=== PATIENT | male | born 1985 | race African-American/Black ===

== ENCOUNTER 2021-02-07 18:03 | Outpatient (CLI) | payer BC, OTHER | END 2021-02-07 18:04 | disposition critical access hospital (66) | LOC: EMS 18:03 | DX: R10.9 Unspecified abdominal pain (principal); R31.0 Gross hematuria | CPT/HCPCS: A0425; A0429 ==

== ENCOUNTER 2021-02-07 18:25 | Emergency (ER) | payer BC, OTHER ==
[2021-02-07 19:02] LABS: PH,URINE 6.5 PH (5.0-7.5)
[2021-02-07 19:04] LABS: BASOPHILS % (AUTO) 0.9 %; EOSINOPHILS # (AUTO) 0.1 10^3/uL (0.0-0.7); EOSINOPHILS % (AUTO) 1.8 %; HGB - HEMOGLOBIN 13.4 g/dL (14.0-18.0); LYMPHOCYTES # (AUTO) 1.2 10^3/uL (1.5-3.5); LYMPHOCYTES % (AUTO) 26.1 %; MEAN CORPUSCULAR HGB CONC 33.5 g/dL (32.0-36.0); MEAN CORPUSCULAR VOLUME 95.5 fL (80.0-94.0); MEAN PLATELET VOLUME 9.7 fL (7.4-11.4); MONOCYTES # (AUTO) 0.9 10^3/uL (0.0-1.0); MONOCYTES % (AUTO) 19.6 %; NEUTROPHILS # (AUTO) 2.3 10^3/uL (1.5-6.6); NEUTROPHILS % (AUTO) 50.5 %; PLT - PLATELET COUNT 187 10^3/uL (130-450); RED BLOOD COUNT 4.19 10^6/uL (4.70-6.10); RED CELL DISTRIBUTION WIDTH 14.1 % (12.0-15.0); WHITE BLOOD COUNT 4.5 x10^3/uL (4.8-10.8)
[2021-02-07 19:04] LABS: CLARITY,URINE HAZY (CLEAR)
[2021-02-07 19:16] LABS: ALBUMIN 4.2 g/dL (3.2-5.5); ALBUMIN/GLOBULIN RATIO 0.8 (1.0-2.2); BILIRUBIN,TOTAL 0.8 mg/dL (0.2-1.0); CALCIUM 9.1 mg/dL (8.5-10.3); CREATININE 0.9 mg/dL (0.6-1.2); TOTAL PROTEIN 9.3 g/dL (6.7-8.2)
[2021-02-07 19:17] LABS: BACTERIA,URINE Moderate /HPF (None Seen); SQUAMOUS EPITHELIAL CELL,UR NONE SEEN (<= Few); WBC,URINE >25 /HPF (0-3)
[2021-02-07 19:19] LABS: LEUKOCYTE ESTERASE, URINE LARGE (NEGATIVE); OCCULT BLOOD,URINE MODERATE (NEGATIVE)
[2021-02-07] MEDS ORDERED: cefTRIAXone 1 GM VIAL IVP STA (19:35)
[2021-02-07] MEDS ORDERED: SODIUM CHLORIDE 0.9% 1,000 ML IV STA (19:36)
[2021-02-07] MEDS ORDERED: HYDROmorphone 1 MG/ML CARPUJECT IVP STA (19:36)
--- NOTE | 2021-02-07 19:36 | ED Physician Documentation ---
History of Present Illness - Stated complaint Stated Complaint: FLANK PAIN - Chief complaint Chief Complaint: Abd Pain - History obtained from History obtained from: Patient - History of Present Illness Timing: How many weeks ago (2) Pain level max: 9 Pain level now: 9 - Additonal information Additional information: Patient is a 35-year-old male who is here from [place] for work. He states he has a history of HIV but has not been taking his medications for the past month. He states that about 2 weeks ago started with dysuria and urinary symptoms. History of recurrent bladder infections in the past. He states that today he developed left flank pain. Worse with movement, better with rest. No vomiting. No fevers. No chills. No sexual partners here. No STD exposure Review of Systems Ten Systems: 10 systems reviewed and negative Constitutional: denies: Fever, Chills Nose: denies: Rhinorrhea / runny nose, Congestion Throat: denies: Sore throat Cardiac: denies: Chest pain / pressure Respiratory: denies: Cough GI: denies: Vomiting, Diarrhea : reports: Dysuria, Frequency Skin: denies: Rash Musculoskeletal: denies: Neck pain, Back pain Neurologic: denies: Headache PD PAST MEDICAL HISTORY - Past Medical History Past Medical History: Yes Cardiovascular: Hypertension Respiratory: Asthma - Past Surgical History Past Surgical History: No - Present Medications Home Medications: Ambulatory Orders Medication Instructions Recorded Confirmed Ciprofloxacin HCl [Cipro] 500 mg PO BID #28 tablet 02/07/21 Ondansetron Odt [Zofran] 4 mg TL Q6H PRN #10 tablet 02/07/21 Oxycodone HCl/Acetaminophen 1 - 2 each PO Q6H PRN #14 tablet 02/07/21 [Percocet 5-325 mg Tablet] - Allergies Allergies/Adverse Reactions: Allergies Allergy/AdvReac Type Severity Reaction Status Date / Time Sulfa (Sulfonamide Allergy Itching Verified 02/07/21 18:36 Antibiotics) - Social History Does the pt smoke?: No Smoking Status: Never smoker PD ED PE NORMAL - Vitals Vital signs reviewed: Yes - General General: Alert and oriented X 3, No acute distress - HEENT HEENT: Moist mucous membranes - Neck Neck: Supple, no meningeal sign - Cardiac Cardiac: RRR, Strong equal pulses - Respiratory Respiratory: No respiratory distress, Clear bilaterally - Abdomen Abdomen: Soft, Non tender, Non distended - Back Back: Other (L CVAT, mild) - Derm Derm: Warm and dry - Extremities Extremities: No edema, No calf tenderness / cord - Neuro Neuro: Alert and oriented X 3 - Psych Psych: Normal mood, Normal affect Results - Vitals Vitals: Vital Signs - 24 hr 02/07/21 02/07/21 02/07/21 18:30 19:22 20:58 Temperature 38.0 C H 37.1 C 37.2 C Heart Rate 80 80 70 Respiratory 14 16 24 Rate Blood Pressure 156/112 H 154/104 H 174/111 H O2 Saturation 99 99 99 Oxygen O2 Source Room air - Labs Labs: Laboratory Tests 02/07/21 02/07/21 02/07/21 18:50 18:55 18:55 WBC 4.5 L RBC 4.19 L Hgb 13.4 L Hct 40.0 L MCV 95.5 H MCH 32.0 H MCHC 33.5 RDW 14.1 Plt Count 187 MPV 9.7 Neut # (Auto) 2.3 Lymph # (Auto) 1.2 L [place] # (Auto) 0.9 Eos # (Auto) 0.1 Baso # (Auto) 0.0 Absolute Nucleated RBC 0.00 Nucleated RBC % 0.0 Sodium 135 Potassium 3.0 L Chloride 98 L Carbon Dioxide 24 Anion Gap 13.0 BUN 8 Creatinine 0.9 Estimated GFR (MDRD) 97 Glucose 104 H Lactic Acid Calcium 9.1 Total Bilirubin 0.8 AST 19 ALT 12 Alkaline Phosphatase 56 Total Protein 9.3 H Albumin 4.2 Globulin 5.1 H Albumin/Globulin Ratio 0.8 L Lipase 21 L Urine Color ORANGE Urine Clarity HAZY Urine pH 6.5 Ur Specific [place] 1.010 Urine Protein Urine Glucose (UA) Urine Ketones Urine Occult Blood MODERATE H Urine Nitrite Urine Bilirubin Urine Urobilinogen Ur Leukocyte Esterase LARGE H Urine RBC 6-10 H Urine WBC >25 H Ur Squamous Epith Cells NONE SEEN Urine Bacteria Moderate H Ur Microscopic Review INDICATED Urine Culture Comments INDICATED 02/07/21 19:48 WBC RBC Hgb Hct MCV MCH MCHC RDW Plt Count MPV Neut # (Auto) Lymph # (Auto) [place] # (Auto) Eos # (Auto) Baso # (Auto) Absolute Nucleated RBC Nucleated RBC % Sodium Potassium Chloride Carbon Dioxide Anion Gap BUN Creatinine Estimated GFR (MDRD) Glucose Lactic Acid < 0.3 L Calcium Total Bilirubin AST ALT Alkaline Phosphatase Total Protein Albumin Globulin Albumin/Globulin Ratio Lipase Urine Color Urine Clarity Urine pH Ur Specific [place] Urine Protein Urine Glucose (UA) Urine Ketones Urine Occult Blood Urine Nitrite Urine Bilirubin Urine Urobilinogen Ur Leukocyte Esterase Urine RBC Urine WBC Ur Squamous Epith Cells Urine Bacteria Ur Microscopic Review Urine Culture Comments - Rads (name of study) CT abd/pelvis Radiology: Prelim report reviewed, EMP read contemporaneously, See rad report PD MEDICAL DECISION MAKING - ED course Complexity details: reviewed results, re-evaluated patient, considered differential, d/w patient ED course: 35-year-old male presents to the emergency department with cystitis, possible early pyelonephritis. Given Rocephin here. Pain well controlled. No ureteral stone. No sepsis. Tolerating p.o. without difficulty. Given IV fluids. Lactate is normal. We will place on antibiotics for home and have him follow-up with his doctor. Patient counseled regarding signs and symptoms for which I believe and urgent re-evaluation would be necessary. Patient with good understanding of and agreement to plan and is comfortable going home at this time This document was made in part using voice recognition software. While efforts are made to proofread this document, sound alike and grammatical errors may occur. IMPRESSION: 1. Bladder wall thickening and mural enhancement. Findings consistent with cysti tis. 2. There is mild prominence of the proximal left ureter with enhancement suggesting ascending urinary tract infectious/inflammatory process. No right nephrogram to suggest pyelonephritis at this time. No hydronephrosis. 3. No kidney stones seen. Departure - Departure Disposition: 01 Home, Self Care Clinical Impression: Pyelonephritis Condition: Good Instructions: ED UTI Pyelonephritis Male Follow-Up: your,doctor in 1 week if not better [Other] Prescriptions: Ciprofloxacin HCl [Cipro] 500 mg PO BID #28 tablet Oxycodone HCl/Acetaminophen [Percocet 5-325 mg Tablet] 1 - 2 each PO Q6H PRN #14 tablet PRN Reason: pain Ondansetron Odt [Zofran] 4 mg TL Q6H PRN #10 tablet PRN Reason: Nausea / Vomiting Comments: Take all antibiotics until gone. Follow-up with your doctor for further care. Return if you worsen. If you are not improving in the next 24 to 48 hours, you need to return for repeat evaluation. Do not drink alcohol or drive while on narcotic pain medicine. Note that many narcotic pain relievers also contain tylenol/acetaminophen. Please ensure that your total dose of acetaminophen from all sources does not exceed 3 grams (3000mg) per day. You may constipated on this medication, take a stool softener such as "Colace" twice a day while you are on it. Also recommend a [id number] laxative such as senna or MiraLAX any day that you do not have a bowel movement. If you received narcotic pain medication in the emergency department, do not drive or operate machinery for the next 24 hours. Discharge Date/Time: 02/07/21 21:08
[2021-02-07] MEDS ORDERED: IOPAMIDOL-300 100 ML VIAL ONE (19:39)
[2021-02-07] MEDS ORDERED: IOPAMIDOL-300 100 ML VIAL IVP ONE (20:13)
--- NOTE | 2021-02-07 20:49 | CT Report ---
PROCEDURE: Abdomen/Pelvis W INDICATIONS: flank pain, L, UTI CONTRAST: IV CONTRAST: Isovue 300 ml: 100 PO CONTRAST: *NO PO CONTRAST TECHNIQUE: After the administration of IV contrast, 5 mm thick sections acquired from the diaphragms to the symp hysis. 5 mm thick coronal and sagittal reformats were acquired. For radiation dose reduction, the f ollowing was used: automated exposure control, adjustment of mA and/or kV according to patient size. COMPARISON: None. FINDINGS: Image quality: Excellent. ABDOMEN: Lung bases: Lung bases are clear. Heart size is normal. Solid organs: Liver and spleen are normal in size and enhancement. Focal fatty infiltration at the falciform ligament. Gallbladder is unremarkable. Biliary system is non dilated. Pancreas enhances n ormally. No adrenal nodules. Kidneys demonstrate normal size and enhancement, without hydronephrosi s. No striated nephrogram. Proximal left ureter is mildly dilated with enhancement, (01/15). Peritoneum and bowel: Bowel loops demonstrate normal wall thickness and caliber. No free fluid or a ir. Nodes and vessels: No retroperitoneal or mesenteric adenopathy by size criteria. Aorta and inferior vena cava are normal in size. Miscellaneous: No ventral hernias. PELVIS: Genitourinary: Bladder demonstrates mural enhancement, (04/10). Bladder wall appears thickened. Ques tion of mild adjacent fat stranding. Miscellaneous: No inguinal hernias or adenopathy. Bones: No suspicious bony lesions. No vertebral body compression fractures. IMPRESSION: 1. Bladder wall thickening and mural enhancement. Findings consistent with cystitis. 2. There is mild prominence of the proximal left ureter with enhancement suggesting ascending urinary tract infectious/inflammatory process. No right nephrogram to suggest pyelonephritis at this time. N o hydronephrosis. 3. No kidney stones seen. Results were communicated to Dr. Burch at 02/07/2021 8:46 PM PDT. Reviewed by: Germain Carl MD on 02/07/2021 8:48 PM PDT Approved by: Germain Carl MD on 02/07/2021 8:48 PM PDT Station ID: [id number]
[2021-02-07] MEDS ORDERED: oxyCODONE 5 MG TABLET PO STA (20:51)
[2021-02-07 20:58] VITALS: BP 174/111
== END 2021-02-07 21:08 | disposition home or self-care (01) ==
LOC: ED 18:25
DX: N12 Tubulo-interstitial nephritis, not specified as acute or chronic (principal); B20 Human immunodeficiency virus [HIV] disease; I10 Essential (primary) hypertension; Z91.14 Patient's other noncompliance with medication regimen
CPT/HCPCS: 36415; 74177; 80053; 81001; 83605; 83690; 85025; 87040; 87077; 87086; 87181; 96374; 96375; 99284; A9270; J1170; Q9967; 81003